=== PATIENT | male | born 1970 | race Two or more races ===

== ENCOUNTER 2017-01-05 06:07 | Emergency (ER) | payer MEDICAID ==
[~2017-01-05] VITALS: Ht 177.8 cm; Wt 108.0 kg
[~2017-01-05 06:07] MED LIST: DIVA500T53 PO; TRAZ50TA2 PO
[2017-01-05 06:21] VITALS: BP 152/103
== END 2017-01-05 08:38 | disposition left against medical advice (07) ==
LOC: EDBD 06:07 → ER 06:09
DX: R07.9 Chest pain, unspecified (principal); Z53.21 Procedure and treatment not carried out due to patient leaving prior to being seen by health care provider

== ENCOUNTER 2018-05-14 08:10 | Emergency (ER) | payer MEDICAID ==
[~2018-05-14] VITALS: Ht 177.8 cm; Wt 95.3 kg
[2018-05-14 08:15] VITALS: BP 140/82
== END 2018-05-14 09:44 | disposition home or self-care (01) ==
LOC: ER 08:10
DX: F31.9 Bipolar disorder, unspecified (principal); Z76.0 Encounter for issue of repeat prescription; F20.9 Schizophrenia, unspecified; Z88.8 Allergy status to other drugs, medicaments and biological substances

== ENCOUNTER 2018-06-05 10:53 | Emergency (ER) | payer MEDICAID ==
[~2018-06-05] VITALS: Ht 175.3 cm; Wt 102.1 kg
[2018-06-05 11:02] VITALS: BP 151/88
== END 2018-06-05 12:45 | disposition home or self-care (01) ==
LOC: ER 10:53
DX: F31.9 Bipolar disorder, unspecified (principal); F20.9 Schizophrenia, unspecified; Z76.0 Encounter for issue of repeat prescription; Z88.6 Allergy status to analgesic agent

== ENCOUNTER 2019-04-18 07:22 | Emergency (ER) | payer MEDICAID ==
[~2019-04-18] VITALS: Ht 177.8 cm; Wt 90.7 kg
[2019-04-18 07:33] VITALS: BP 145/86
== END 2019-04-18 07:55 | disposition left against medical advice (07) ==
LOC: ER 07:22
DX: S80.862A Insect bite (nonvenomous), left lower leg, initial encounter (principal); S80.861A Insect bite (nonvenomous), right lower leg, initial encounter; S30.861A Insect bite (nonvenomous) of abdominal wall, initial encounter; Z53.21 Procedure and treatment not carried out due to patient leaving prior to being seen by health care provider; W57.XXXA Bitten or stung by nonvenomous insect and other nonvenomous arthropods, initial encounter; Y93.89 Activity, other specified; Y92.89 Other specified places as the place of occurrence of the external cause; Y99.8 Other external cause status

== ENCOUNTER 2019-04-24 08:43 | Emergency (ER) | payer MEDICAID ==
[~2019-04-24] VITALS: Ht 177.8 cm; Wt 90.7 kg
[2019-04-24 09:32] VITALS: BP 131/48
== END 2019-04-24 10:12 | disposition home or self-care (01) ==
LOC: ER 08:43
DX: S30.861A Insect bite (nonvenomous) of abdominal wall, initial encounter (principal); W57.XXXA Bitten or stung by nonvenomous insect and other nonvenomous arthropods, initial encounter; Y93.89 Activity, other specified; Y92.89 Other specified places as the place of occurrence of the external cause; Y99.8 Other external cause status

== ENCOUNTER 2019-05-25 16:51 | Emergency (ER) | payer MEDICAID ==
[~2019-05-25] VITALS: Ht 177.8 cm; Wt 90.7 kg
[2019-05-25 18:49] VITALS: BP 132/71
[2019-05-25 19:26] LABS: Urine Bacteria NONE SEEN /hpf (None Seen); Urine Blood Negative /uL (Negative); Urine Hyaline Cast FEW /lpf (0 - 2); Urine Mucus FEW (None Seen); Urine Specific Gravity 1.027 (1.001-1.035); Urine WBC 2 /hpf (0 - 3)
[2019-05-25 19:42] LABS: Amphetamine Screen, Urine POSITIVE (NEGATIVE); Barbiturate Scree,Urine NEGATIVE (NEGATIVE); Benzodiazephine Screen, Urine NEGATIVE (NEGATIVE); Cannabinoid Screen, Urine NEGATIVE (NEGATIVE); Cocaine Screen, Urine NEGATIVE (NEGATIVE); Opiate Scree,Urine NEGATIVE (NEGATIVE); Phencyclidine Screen, Urine NEGATIVE (NEGATIVE)
== END 2019-05-25 19:21 | disposition home or self-care (01) ==
LOC: ER 16:51
DX: B35.6 Tinea cruris (principal); F15.10 Other stimulant abuse, uncomplicated; R44.3 Hallucinations, unspecified; F32.9 Major depressive disorder, single episode, unspecified; Z88.6 Allergy status to analgesic agent
CPT/HCPCS: 80307; 81001

== ENCOUNTER 2019-09-25 17:00 | Emergency (ER) | payer MEDICAID ==
[~2019-09-25] VITALS: Ht 177.8 cm; Wt 99.8 kg
[2019-09-25 18:27] LABS: Basophils # (auto) 0.1 10 ^3/uL (0-0.2); Basophils % (auto) 0.6 % (0.0-2.0); Eosinophils # (auto) 0.2 10 ^3/uL (0-0.8); Eosinophils % (auto) 2.1 % (0.0-7.0); Hematocrit 42.4 % (41.0-53.0); Hemoglobin 14.7 g/dL (13.5-17.5); Lymphocytes # (auto) 2.1 10 ^3/uL (0.4-5.4); Mean Corpuscular Hemoglobin 32.3 pg (28.0-32.0); Mean Corpuscular Hgb Conc. 34.7 g/dL (32.0-36.0); Mean Corpuscular Volume 93.3 fL (80.0-100.0); Monocytes # (auto) 0.8 10 ^3/uL (0-1.3); Monocytes % (auto) 8.5 % (0.0-12.0); Neutrophils % (auto) 65.8 % (37.0-80.0); Nucleated Red Blood Cells % 0.1 %; Platelet Count (auto) 283 10^3/uL (140-450); Red Blood Cells 4.55 10^6/uL (4.5-5.90); Red Cell Distribution Width 13.5 % (11.8-14.3); White Blood Cell 9.1 10^3/uL (4.4-10.8)
[2019-09-25 18:44] LABS: Chloride 105 mmol/L (98-107); Potassium 3.8 mmol/L (3.5-5.1); Sodium 138 mmol/L (136-145)
[2019-09-25 18:50] LABS: Salicylate 1.7 mg/dL (2.8-20.0)
[2019-09-25 18:51] LABS: Acetaminophen < 2.0 ug/mL (10-30)
[2019-09-25 18:54] LABS: Alanine Aminotransferase 52 U/L (16-61); Albumin 3.8 g/dL (3.4-5.0); Alkaline Phosphatase 122 U/L (45-117); Anion Gap 9 (5-15); Aspartate Aminotransferase 35 U/L (15-37); BUN/Creatinine Ratio 16.1; Bilirubin, Total 0.3 mg/dL (0.2-1.0); Blood Urea Nitrogen 15 mg/dL (7-18); Calcium 8.4 mg/dL (8.5-10.1); Carbon Dioxide 24 mmol/L (21-32); GFR African American 112 mL/min; GFR Non-African American 92 mL/min; Glucose 87 mg/dL (74-106); Total Protein 7.7 g/dL (6.4-8.2)
[2019-09-25 18:55] LABS: Blood Alcohol < 3.0 mg/dL (0-5)
[2019-09-27] MEDS ORDERED: LORazepam 0.5 MG TAB PO ONE ×2 (12:27→22:00)
[2019-09-27] MEDS ORDERED: OLANZapine 5 MG TAB PO ONE ×2 (12:27→17:00)
[2019-09-27] MEDS ORDERED: QUEtiapine FUMARATE 25 MG TAB PO ONE (22:00)
[2019-09-28] MEDS: OLANZapine 5 MG TAB PO SCH ×2 (10:00→22:26)
[2019-09-28] MEDS: LORazepam 0.5 MG TAB PO PRN (22:26)
[2019-09-29] MEDS ORDERED: LORazepam 0.5 MG TAB ONE (16:59)
[2019-09-29] MEDS ORDERED: OLANZapine 5 MG TAB ONE (17:00)
[2019-09-29] MEDS: LORazepam 0.5 MG TAB PO PRN (17:14)
[2019-09-29] MEDS: OLANZapine 5 MG TAB PO SCH (17:15)
[2019-09-30] MEDS: LORazepam 0.5 MG TAB PO PRN (15:08)
[2019-09-30] MEDS: OLANZapine 5 MG TAB PO SCH (15:08)
[2019-10-01] MEDS: LORazepam 0.5 MG TAB PO PRN (18:52)
[2019-10-01] MEDS ORDERED: ACETAMINOPHEN 650 mg PER 20 mL UD PO ONE (21:30)
[2019-10-02] MEDS: OLANZapine 5 MG TAB PO SCH ×2 (10:00→21:52)
[2019-10-02] MEDS: LORazepam 0.5 MG TAB PO PRN ×2 (15:49→21:52)
[2019-10-03] MEDS: OLANZapine 5 MG TAB PO SCH (10:00)
[2019-10-03] MEDS: LORazepam 0.5 MG TAB PO PRN ×2 (12:42→20:08)
[2019-10-04] MEDS: OLANZapine 5 MG TAB PO SCH (10:00)
[2019-10-04] MEDS ORDERED: LORazepam 0.5 MG TAB ONE ×2 (14:53→21:45)
[2019-10-04] MEDS ORDERED: OLANZapine 5 MG TAB ONE (14:53)
[2019-10-04] MEDS: LORazepam 0.5 MG TAB PO PRN ×2 (15:00→21:48)
[2019-10-04] MEDS ORDERED: traZODone HCL 50 MG TAB PO ONE (17:45)
[2019-10-04] MEDS ORDERED: traZODone HCL 50 MG TAB ONE (21:44)
[2019-10-05] MEDS: LORazepam 0.5 MG TAB PO PRN (17:28)
[2019-10-05] MEDS: OLANZapine 5 MG TAB PO SCH (17:28)
[2019-10-05 18:12] VITALS: BP 123/79
== END 2019-10-06 17:20 | disposition left against medical advice (07) ==
LOC: EDBD 17:00 → ER 17:00
DX: F20.9 Schizophrenia, unspecified (principal); F41.9 Anxiety disorder, unspecified; R45.851 Suicidal ideations
CPT/HCPCS: 36415; 71045; 80053; 80320; 80329; 85025

== ENCOUNTER 2019-10-07 19:03 | Emergency (ER) | payer MEDICAID ==
[~2019-10-07] VITALS: Ht 177.8 cm; Wt 94.3 kg
[2019-10-07 20:27] LABS: Basophils # (auto) 0.1 10 ^3/uL (0-0.2); Basophils % (auto) 0.5 % (0.0-2.0); Eosinophils # (auto) 0.1 10 ^3/uL (0-0.8); Eosinophils % (auto) 0.8 % (0.0-7.0); Hematocrit 50.1 % (41.0-53.0); Hemoglobin 17.1 g/dL (13.5-17.5); Lymphocytes # (auto) 2.4 10 ^3/uL (0.4-5.4); Lymphocytes % (auto) 16.6 % (10.0-50.0); Mean Corpuscular Hemoglobin 31.8 pg (28.0-32.0); Mean Corpuscular Hgb Conc. 34.1 g/dL (32.0-36.0); Mean Corpuscular Volume 93.4 fL (80.0-100.0); Monocytes # (auto) 1.2 10 ^3/uL (0-1.3); Monocytes % (auto) 8.1 % (0.0-12.0); Neutrophils # (auto) 10.6 10 ^3/uL (1.6-8.6); Platelet Count (auto) 247 10^3/uL (140-450); Red Blood Cells 5.36 10^6/uL (4.5-5.90); Red Cell Distribution Width 13.9 % (11.8-14.3); White Blood Cell 14.4 10^3/uL (4.4-10.8)
[2019-10-07 20:41] LABS: Alanine Aminotransferase 59 U/L (16-61); Albumin 4.6 g/dL (3.4-5.0); Anion Gap 11 (5-15); Aspartate Aminotransferase 20 U/L (15-37); BUN/Creatinine Ratio 14.2; Blood Alcohol < 3.0 mg/dL (0-5); Blood Urea Nitrogen 16 mg/dL (7-18); Calcium 9.5 mg/dL (8.5-10.1); Carbon Dioxide 23 mmol/L (21-32); Chloride 104 mmol/L (98-107); GFR African American 89 mL/min; GFR Non-African American 74 mL/min; Glucose 113 mg/dL (74-106); Potassium 3.9 mmol/L (3.5-5.1); Salicylate 2.6 mg/dL (2.8-20.0); Sodium 138 mmol/L (136-145)
[2019-10-07 20:44] LABS: Alkaline Phosphatase 116 U/L (45-117); Bilirubin, Total 0.8 mg/dL (0.2-1.0); Total Protein 9.5 g/dL (6.4-8.2)
[2019-10-07 20:53] LABS: Acetaminophen < 2.0 ug/mL (10-30)
[2019-10-08 02:05] LABS: Urine Bacteria MANY /hpf (None Seen); Urine Blood 1+ /uL (Negative); Urine Mucus FEW (None Seen); Urine Specific Gravity 1.042 (1.001-1.035); Urine Sperm PRESENT /hpf (None Seen); Urine WBC 3 /hpf (0 - 3)
[2019-10-08 02:15] LABS: Amphetamine Screen, Urine POSITIVE (NEGATIVE); Barbiturate Scree,Urine NEGATIVE (NEGATIVE); Benzodiazephine Screen, Urine NEGATIVE (NEGATIVE); Cannabinoid Screen, Urine NEGATIVE (NEGATIVE); Cocaine Screen, Urine NEGATIVE (NEGATIVE); Opiate Scree,Urine NEGATIVE (NEGATIVE); Phencyclidine Screen, Urine NEGATIVE (NEGATIVE)
[2019-10-08] MEDS ORDERED: LORazepam 0.5 MG TAB PO ONE (03:30)
[2019-10-08] MEDS ORDERED: SERTRALINE HCL 50 MG TAB ONE (10:15)
[2019-10-08] MEDS: MIRTAZAPINE 30 MG TAB PO SCH (22:51)
[2019-10-09] MEDS: SERTRALINE HCL 50 MG TAB PO SCH (10:00)
[2019-10-09] MEDS: MIRTAZAPINE 30 MG TAB PO SCH (21:48)
[2019-10-10] MEDS: SERTRALINE HCL 50 MG TAB PO SCH (10:07)
[2019-10-10] MEDS: MIRTAZAPINE 30 MG TAB PO SCH (23:30)
[2019-10-11] MEDS: SERTRALINE HCL 50 MG TAB PO SCH (10:28)
[2019-10-11] MEDS: MIRTAZAPINE 30 MG TAB PO SCH (21:54)
[2019-10-12] MEDS: SERTRALINE HCL 50 MG TAB PO SCH (11:02)
[2019-10-12 16:45] VITALS: BP 114/77
== END 2019-10-12 17:25 | disposition short-term general hospital (02) ==
LOC: ER 19:04
DX: F32.9 Major depressive disorder, single episode, unspecified (principal); R45.851 Suicidal ideations; F20.9 Schizophrenia, unspecified
CPT/HCPCS: 36415; 80053; 80307; 80320; 80329; 81001; 85025